=== PATIENT | female | born 1945 | race Hispanic/Latino ===

== ENCOUNTER 2023-02-07 08:12 | Observation (INO) | payer MEDICARE, BC ==
[2023-02-06 10:49] LABS: BASOPHILS # (AUTO) 0.1 (0.0-0.1); BASOPHILS % 0.8 % (0.0-1.0); EOSINOPHILS # (AUTO) 0.3 (0.0-0.4); EOSINOPHILS % 4.1 % (0.0-6.0); HEMATOCRIT 35.4 % (34.2-44.1); HEMOGLOBIN 11.6 g/dL (12.0-16.0); LYMPHOCYTES # (AUTO) 1.1 (1.0-3.2); LYMPHOCYTES % 16.7 % (18.0-39.1); MEAN CORPUSCULAR HEMOGLOBIN 31.3 pg (28-32); MEAN CORPUSCULAR HGB CONC 32.8 g/dL (31-35); MEAN CORPUSCULAR VOLUME 95.4 fL (81-99); MONOCYTES # (AUTO) 0.4 (0.2-0.8); MONOCYTES % 6.7 % (4.4-11.3); NEUTROPHILS # (AUTO) 4.7 (2.1-6.9); NEUTROPHILS % 71.1 % (38.7-80.0); PLATELET COUNT 184 x10e3/uL (140-360); RED BLOOD COUNT 3.71 x10e6/uL (3.6-5.1); RED CELL DISTRIBUTION WIDTH 12.9 % (11.7-14.4)
[2023-02-06 11:20] LABS: ANION GAP 12.1 mmol/L (8-16); CALCIUM 9.4 mg/dL (8.4-10.2); CREATININE, SERUM 0.77 mg/dL (0.57-1.11); POTASSIUM 4.1 mmol/L (3.5-5.1)
[~2023-02-07] VITALS: Ht 149.9 cm; Wt 71.7 kg
[~2023-02-07 08:12] MED LIST: ENBREL50 MG/1 ML SC; FUROSEMIDE40 MG PO; GLIMEPIRIDE2 MG PO; LOSARTAN POTASS25 MG PO; METOPROLOL SUCC25 MG PO; PRAVASTATIN SOD20 MG PO; PROLIA60 MG/1 ML SC; RYBELSUS7 MG PO; TYLENOL325 MG PO
[2023-02-07] MEDS ORDERED: DEXAMETHASONE SOD PHOS 10 MG/1 ML VIAL ONE (08:26)
[2023-02-07] MEDS ORDERED: CELECOXIB 200 MG CAP ONE (08:26)
[2023-02-07] MEDS ORDERED: GABAPENTIN 300 MG CAP ONE (08:27)
[2023-02-07] MEDS ORDERED: CEFAZOLIN SODIUM 2 GM ONE ×2 (08:27→14:51)
[2023-02-07] MEDS ORDERED: LACTATED RINGER'S 1,000 ML ONE (08:27)
[2023-02-07] MEDS ORDERED: TRANEXAMIC ACID 20 ML ONE (10:37)
[2023-02-07] MEDS ORDERED: SODIUM CHLORIDE 0.9% 500ML 500 ML ONE (10:37)
[2023-02-07] MEDS ORDERED: Vancomycin IV 1,000 MG ONE (10:37)
[2023-02-07] MEDS ORDERED: KETAMINE 50MG/5ML SYR ONE (11:22)
[2023-02-07] MEDS ORDERED: ROPIVACAINE 0.5% ONE (11:32)
[2023-02-07] MEDS ORDERED: DIPHENHYDRAMINE HCL INJ 50 MG/ML VIAL IV PRN (12:30)
[2023-02-07] MEDS ORDERED: DOCUSATE SODIUM 100 MG CAP PO PRN (12:30)
[2023-02-07] MEDS ORDERED: HYDROCODONE/APAP 7.5MG-325MG 1 EA TAB PO PRN (12:30)
[2023-02-07] MEDS ORDERED: ACETAMINOPHEN 650 MG SUPP PR PRN (12:30)
[2023-02-07] MEDS ORDERED: ONDANSETRON HCL INJ 2MG/ML 2ML 2 MG/ML VIAL IV PRN (12:30)
[2023-02-07] MEDS ORDERED: HYDROCODONE/APAP 5MG-325MG TAB PO PRN (12:30)
[2023-02-07] MEDS: FENTANYL CITRATE/PF 100MCG/2 ML INJ ONE ×2 (13:16→13:37)
[2023-02-07] MEDS ORDERED: ACETAMINOPHEN 1000 MG/100 ML 100 ML IV ONE (13:31)
[2023-02-07] MEDS ORDERED: ONDANSETRON HCL INJ 2MG/ML 2ML 2 MG/ML VIAL ONE ×2 (13:44→15:13)
[2023-02-07] MEDS ORDERED: PROPOFOL IV EMULSION 10 MG/ML 20 ML VIAL ONE (13:44)
[2023-02-07] MEDS ORDERED: SEVOFLURANE INHAL SOLN 250 ML PEN BTL ONE (13:44)
[2023-02-07] MEDS ORDERED: LIDOCAINE HCL 2% LOCAL INJ 5 ML SDV VIAL INJ ONE (13:44)
[2023-02-07] MEDS ORDERED: POVIDONE IODINE 0.05% 0.05 % ML PO ONE (13:44)
[2023-02-07] MEDS ORDERED: ROPIVACAINE 0.5% 5 MG/ML 30 ML SDV ONE (13:47)
[2023-02-07] MEDS ORDERED: MIDAZOLAM HCL 2 MG/2 ML VIAL ONE (13:59)
[2023-02-07] MEDS ORDERED: FENTANYL CITRATE/PF 100MCG/2 ML INJ ONE (13:59)
[2023-02-07] MEDS ORDERED: HYDROCODONE/APAP 7.5MG-325MG 1 EA TAB ONE (14:18)
[2023-02-07 17:38] VITALS: BP 168/79; PULSE 78; RESP 16; TEMP 97.9; O2SAT 100
[2023-02-07 17:39] VITALS: BP 168/79; PULSE 78; RESP 16; TEMP 97.9; O2SAT 100
[2023-02-07 18:02] VITALS: BP 168/79; PULSE 78; RESP 16; TEMP 97.9; O2SAT 100
[2023-02-07 18:23] VITALS: BP 154/76
[2023-02-07] MEDS: SODIUM CHLORIDE 0.9% 1000ML 1,000 ML IV SCH (19:01)
[2023-02-07 20:51] VITALS: BP 164/82; PULSE 76; RESP 16; TEMP 97.5; O2SAT 100
[2023-02-07 21:00] VITALS: BP 164/82; PULSE 76; RESP 16; TEMP 97.5; O2SAT 100
[2023-02-08 00:15] VITALS: BP 100/69; PULSE 62; RESP 18; TEMP 97.7
[2023-02-08 04:00] VITALS: BP 131/68; PULSE 65; RESP 18; TEMP 97.5; O2SAT 99
[2023-02-08] MEDS: SODIUM CHLORIDE 0.9% 1000ML 1,000 ML IV SCH (04:15)
[2023-02-08 04:57] LABS: HEMATOCRIT 30.1 % (34.2-44.1); HEMOGLOBIN 10.2 g/dL (12.0-16.0)
[2023-02-08 07:45] VITALS: BP 126/66; PULSE 73; RESP 16; TEMP 97.7; O2SAT 100
[2023-02-08 08:18] VITALS: BP 126/66; PULSE 73; RESP 16; TEMP 97.7; O2SAT 100
[2023-02-08] MEDS ORDERED: CELECOXIB 200 MG CAP PO SCH (09:00)
[2023-02-08] MEDS ORDERED: ASPIRIN 325 MG TAB PO SCH (09:00)
[2023-02-08 10:04] VITALS: BP 126/66; PULSE 78; RESP 16; TEMP 97.7; O2SAT 100
[2023-02-08 11:29] VITALS: BP 117/58; PULSE 78; RESP 18; TEMP 97.4; O2SAT 100
[2023-02-08] MEDS ORDERED: ASPIRIN81 MG PO (12:30)
[2023-02-08] MEDS ORDERED: ACETAMINOPHEN 1000 MG/100 ML IV PRN (12:30)
[2023-02-08] MEDS ORDERED: ONDANSETRON HCL 4 MG ORAL DISINTEGRATING TAB PO PRN (14:30)
== END 2023-02-08 14:50 | disposition home health service (06) ==
LOC: OR 08:12 → PACU V 15:16 → MED/SURG 17:51
PROVIDERS: ADMIT Specialist; ATTEND Specialist
DX: M17.11 Unilateral primary osteoarthritis, right knee (principal); E11.9 Type 2 diabetes mellitus without complications; Z79.84 Long term (current) use of oral hypoglycemic drugs; Z96.652 Presence of left artificial knee joint; Z01.812 Encounter for preprocedural laboratory examination; Z01.818 Encounter for other preprocedural examination; Z79.899 Other long term (current) drug therapy
CPT/HCPCS: 27447; 36415 ×3; 71046; 73560; 80048; 82948 ×2; 85014; 85018; 85025; 86850; 86900; 86920; 97110; 97116 ×4; 97162; 97530 ×3; C1713 ×2; C1776 ×2; G0378 ×2; J0131 ×2; J0171; J0690 ×2; J1100; J2001; J2250; J2405; J2704; J2795; J3010; J3370; J7030; J7040; J7121